=== PATIENT | male | born 1960 | race African-American/Black ===

== ENCOUNTER → 2017-08-14 | Outpatient (CLI) | payer MEDICARE, OTHER | END | disposition home or self-care (01) | LOC: HKI 14:26 | DX: M25.562 Pain in left knee (principal); M54.5 Low back pain | CPT/HCPCS: G0463 ==

== ENCOUNTER → 2017-10-31 | Outpatient (CLI) | payer MEDICARE, OTHER | END | disposition home or self-care (01) | LOC: HKI 11:21 | DX: M25.562 Pain in left knee (principal); M51.36 Other intervertebral disc degeneration, lumbar region; S83.512D Sprain of anterior cruciate ligament of left knee, subsequent encounter; X58.XXXD Exposure to other specified factors, subsequent encounter | CPT/HCPCS: G0463 ==